=== PATIENT | female | born 1955 | race African-American/Black ===

== ENCOUNTER 2018-11-21 05:21 | Inpatient (IN) ==
[2018-11-21] MEDS ORDERED: DIAZEPAM 5 MG TABLET PO ONE (06:00)
[2018-11-21] MEDS ORDERED: FAMOTIDINE 20 MG TABLET PO ONE (06:00)
[2018-11-21] MEDS ORDERED: GABAPENTIN 400 MG CAPSULE PO ONE (06:00)
[2018-11-21] MEDS ORDERED: ACETAMINOPHEN 500 MG TABLET PO ONE (06:00)
[2018-11-21] MEDS ORDERED: ceFAZolin 2,000 MG in PREMIX 1 EACH IV ONE (06:30)
[2018-11-21] MEDS ORDERED: VANCOMYCIN INJ 1,000 MG in SODIUM CHLORIDE 0.9% 250 ML IV ONE (06:30)
[2018-11-21] MEDS ORDERED: VANCOMYCIN 1,000 MG VIAL ONE (06:54)
[2018-11-21] MEDS ORDERED: ACETAMINOPHEN 500 MG TABLET ONE (06:55)
[2018-11-21] MEDS ORDERED: DIAZEPAM 5 MG TABLET ONE (06:55)
[2018-11-21] MEDS ORDERED: GABAPENTIN 400 MG CAPSULE ONE (06:55)
[2018-11-21] MEDS ORDERED: FAMOTIDINE 20 MG TABLET ONE (06:55)
[2018-11-21] MEDS ORDERED: DEXAMETHASONE 4 MG/1 ML VIAL ONE (06:58)
[2018-11-21] MEDS ORDERED: EPINEPHrine 1 MG/ML VIAL ONE (06:58)
[2018-11-21] MEDS ORDERED: BUPIVACAINE SPINAL 0.75% 2 ML AMP SPINAL ONE (06:58)
[2018-11-21] MEDS ORDERED: ROPIVACAINE 0.5% 30 ML VIAL ONE (06:58)
[2018-11-21] MEDS ORDERED: TRANEXAMIC ACID 1,000 MG/10 ML VIAL ONE (06:58)
[2018-11-21] MEDS ORDERED: PROPOFOL 0 MG/0 ML BOTTLE IV ONE (07:00)
[2018-11-21] MEDS ORDERED: LACTATED RINGERS 1,000 ML IV SCH (07:30)
[2018-11-21] MEDS ORDERED: ceFAZolin 1,000 MG VIAL ONE (08:40)
[2018-11-21] MEDS ORDERED: ONDANSETRON 4 MG/2 ML VIAL IV PRN (09:52)
[2018-11-21] MEDS ORDERED: oxyCODONE IR 5 MG TABLET PO PRN ×2 (09:52)
[2018-11-21] MEDS ORDERED: MAGNESIUM HYDROXIDE SUSP 30 ML UDCUP PO PRN (09:52)
[2018-11-21] MEDS ORDERED: diphenhydrAMINE CAP 25 MG CAPSULE PO PRN (09:52)
[2018-11-21] MEDS ORDERED: MORPHINE 4 MG/1 ML VIAL IV PRN ×2 (09:52)
[2018-11-21] MEDS ORDERED: MIDAZOLAM 2 MG/2 ML VIAL ONE ×2 (10:01)
[2018-11-21] MEDS ORDERED: fentaNYL 100 MCG/2 ML VIAL ONE (10:02)
[2018-11-21] MEDS ORDERED: LIDOCAINE 100 MG/5 ML SYRINGE ONE (10:02)
[2018-11-21] MEDS ORDERED: PROPOFOL 200 MG/20 ML VIAL IV ONE (10:02)
[2018-11-21] MEDS ORDERED: SODIUM CHLORIDE 0.9% 100 ML IV ONE (10:03)
[2018-11-21] MEDS ORDERED: SODIUM CHLORIDE 0.9% 250 ML IV ONE (10:03)
[2018-11-21] MEDS ORDERED: ePHEDrine 50 MG/ML AMP ONE (10:03)
[2018-11-21] MEDS ORDERED: SODIUM CHLORIDE 0.9% 1,000 ML IV ONE (10:03)
[2018-11-21 12:55] LABS: Basophils % 0.2 % (0.0-0.8); Eosinophils % 0.4 % (0.00-10.9); Hematocrit 38.4 VOL% (35.7-47.0); Hemoglobin 11.8 GM/DL (12.0-16.0); Immature Granulocytes % 1.4 %; Immature Granulocytes Absolute 0.11 #; Lymphocytes # 1.2 10*3/uL (1.4-4.0); Lymphocytes % 15.1 % (21.3-54.2); Mean Corpuscular HGB Conc 30.7 GM/DL (32-36); Mean Corpuscular Volume 83.5 FL (87-102); Mean Platelet Volume 10.9 FL (9.6-12.0); Monocytes % 4.1 % (1.7-12.7); Neutrophils % 78.8 % (38.7-73.9); Platelet Count 250 T/CUMM (130-400); Red Cell Distribution Width 15.4 % (9.3-17.3); White Blood Count 8.1 T/CUMM (4-12)
[2018-11-21 13:03] LABS: Calcium 8.6 MG/DL (8.5-10.1); Osmolality,Calculated 281.3 MOS/KG (273-304)
[2018-11-21] MEDS: KETOROLAC 30 MG/1 ML VIAL IV SCH ×3 (16:11→21:35)
[2018-11-21] MEDS: ceFAZolin 2,000 MG in PREMIX 1 EACH IV SCH (16:40)
[2018-11-21] MEDS: LACTATED RINGERS 1,000 ML IV SCH ×2 (16:46→19:19)
[2018-11-21] MEDS ORDERED: SIMVASTATIN 20 MG TABLET PO SCH (21:00)
[2018-11-21] MEDS: DOCUSATE SODIUM 100 MG CAPSULE PO SCH (21:35)
[2018-11-22] MEDS: ceFAZolin 2,000 MG in PREMIX 1 EACH IV SCH (00:54)
[2018-11-22] MEDS: KETOROLAC 30 MG/1 ML VIAL IV SCH (04:38)
[2018-11-22] MEDS: LACTATED RINGERS 1,000 ML IV SCH (04:38)
[2018-11-22] MEDS ORDERED: FONDAPARINUX 2.5 MG/0.5 ML SYRINGE SUBCUT SCH (06:00)
[2018-11-22 06:32] LABS: Basophils % 0.2 % (0.0-0.8); Calcium 8.1 MG/DL (8.5-10.1); Eosinophils % 0.1 % (0.00-10.9); Hematocrit 32.3 VOL% (35.7-47.0); Hemoglobin 9.9 GM/DL (12.0-16.0); Immature Granulocytes % 0.4 %; Immature Granulocytes Absolute 0.04 #; Lymphocytes # 1.4 10*3/uL (1.4-4.0); Lymphocytes % 13.8 % (21.3-54.2); Mean Corpuscular HGB Conc 30.7 GM/DL (32-36); Mean Corpuscular Volume 82.2 FL (87-102); Mean Platelet Volume 11.4 FL (9.6-12.0); Monocytes % 7.2 % (1.7-12.7); Neutrophils % 78.3 % (38.7-73.9); Osmolality,Calculated 282.3 MOS/KG (273-304); Platelet Count 226 T/CUMM (130-400); Red Blood Count 3.93 MC/CUMM (3.8-5.5); Red Cell Distribution Width 15.1 % (9.3-17.3); White Blood Count 10.1 T/CUMM (4-12)
[2018-11-22] MEDS: DOCUSATE SODIUM 100 MG CAPSULE PO SCH (08:32)
[2018-11-22] MEDS ORDERED: POTASSIUM CHLORIDE 10 MEQ TABLET PO SCH (09:00)
[2018-11-22] MEDS ORDERED: hydroCHLOROthiazide 12.5 MG CAPSULE PO SCH (09:00)
[2018-11-22] MEDS ORDERED: LEVOTHYROXINE 75 MCG TABLET PO SCH (09:00)
[2018-11-22] MEDS ORDERED: LOSARTAN 50 MG TABLET PO SCH (09:00)
[2018-11-22 12:26] VITALS: BP 144/68
[2018-11-22] MEDS ORDERED: CELECOXIB 200 MG CAPSULE PO SCH (15:53)
== END 2018-11-22 13:00 | disposition home health service (06) | DRG 470 ==
LOC: N.PREADM 05:21 → N.SDSINP 05:22 → N.3E 11:12
PROVIDERS: ADMIT Orthopaedic Surgery; ATTEND Orthopaedic Surgery

== ENCOUNTER 2021-07-29 11:21 | Inpatient (IN) ==
[2021-07-29] MEDS ORDERED: ACETAMINOPHEN 325 MG TABLET PO PRN (14:11)
[2021-07-29] MEDS ORDERED: ONDANSETRON 4 MG/2 ML VIAL IV PRN (14:11)
[2021-07-29 17:58] LABS: Basophils % 0.2 % (0.0-0.8); Eosinophils % 0.1 % (0.00-10.9); Hematocrit 45.4 VOL% (35.7-47.0); Hemoglobin 13.8 GM/DL (12.0-16.0); Immature Granulocytes % 1.3 %; Lymphocytes % 6.7 % (21.3-54.2); Mean Corpuscular HGB Conc 30.4 GM/DL (32-36); Mean Corpuscular Volume 83.9 FL (87-102); Mean Platelet Volume 11.3 FL (9.6-12.0); Monocytes % 6.4 % (1.7-12.7); NRBC # 0.03 10*3/uL; Neutrophils % 85.3 % (38.7-73.9); Platelet Count 211 T/CUMM (130-400); Red Blood Count 5.41 MC/CUMM (3.8-5.5); Red Cell Distribution Width 21.2 % (9.3-17.3); White Blood Count 15.1 T/CUMM (4-12)
[2021-07-29] MEDS: methylPREDNISolone SOD SUC 125 MG/2 ML VIAL IV SCH ×2 (18:02→23:45)
[2021-07-29] MEDS: SODIUM CHLORIDE 0.9% 1,000 ML IV SCH (18:03)
[2021-07-29] MEDS ORDERED: ZALEPLON 5 MG CAPSULE PO PRN (18:05)
[2021-07-29 18:17] LABS: Alanine Aminotransferase 43 U/L (13-56); Albumin 3.6 G/DL (3.4-5.0); Alkaline Phosphatase 72 U/L (45-117); Aspartate Amino Transferase 12 U/L (0-37); Bilirubin,Total < 0.39 MG/DL (0.20-1.00); Blood Urea Nitrogen 88 MG/DL (7-18); Calcium 8.8 MG/DL (8.5-10.1); Carbon Dioxide 11 MMOL/L (21-32); Chloride 125 MMOL/L (98-107); Glucose 85 MG/DL (74-106); Osmolality,Calculated 315.6 MOS/KG (273-304); Potassium 5.1 MMOL/L (3.5-5.1); Sodium 146 MMOL/L (136-145); Total Protein 7.9 G/DL (6.4-8.2)
[2021-07-29 18:18] LABS: Burr Cells Slight; Hypochromia Slight; Ovalocytes Few
[2021-07-29 18:19] LABS: Polychromasia Slight
[2021-07-29 18:20] LABS: Platelet Estimate Normal
[2021-07-29] MEDS: ENOXAPARIN 30 MG/0.3 ML SYRINGE SUBCUT SCH (20:43)
[2021-07-29] MEDS: DOCUSATE SODIUM 100 MG CAPSULE PO SCH (20:44)
[2021-07-30] MEDS: SODIUM CHLORIDE 0.9% 1,000 ML IV SCH ×3 (00:48→19:57)
[2021-07-30 04:38] LABS: Basophils % 0.1 % (0.0-0.8); Hematocrit 40.7 VOL% (35.7-47.0); Hemoglobin 12.7 GM/DL (12.0-16.0); Immature Granulocytes % 0.6 %; Immature Granulocytes Absolute 0.08 #; Lymphocytes # 0.6 10*3/uL (1.4-4.0); Lymphocytes % 4.8 % (21.3-54.2); Mean Corpuscular HGB Conc 31.2 GM/DL (32-36); Mean Corpuscular Volume 82.6 FL (87-102); Mean Platelet Volume 10.9 FL (9.6-12.0); Monocytes # 0.1 10*3/uL (0.11-0.8); Monocytes % 0.8 % (1.7-12.7); NRBC # 0.02 10*3/uL; Neutrophils % 93.7 % (38.7-73.9); Platelet Count 191 T/CUMM (130-400); Red Blood Count 4.93 MC/CUMM (3.8-5.5); Red Cell Distribution Width 20.3 % (9.3-17.3); White Blood Count 12.6 T/CUMM (4-12)
[2021-07-30 05:02] LABS: Acanthocytes Few; Lymphocytes 1 % (20-55); Microcytosis 1+; Ovalocytes Few; Total Cells Counted 100
[2021-07-30 05:03] LABS: Platelet Estimate Normal
[2021-07-30 05:06] LABS: Albumin 3.2 G/DL (3.4-5.0); Bilirubin,Total 0.4 MG/DL (0.20-1.00); Calcium 8.5 MG/DL (8.5-10.1); Osmolality,Calculated 315.4 MOS/KG (273-304); Potassium 4.7 MMOL/L (3.5-5.1); Total Protein 7.1 G/DL (6.4-8.2)
[2021-07-30] MEDS: methylPREDNISolone SOD SUC 125 MG/2 ML VIAL IV SCH ×4 (05:57→23:06)
[2021-07-30] MEDS: LEVOTHYROXINE 112 MCG TABLET PO SCH (05:57)
[2021-07-30] MEDS: DOCUSATE SODIUM 100 MG CAPSULE PO SCH ×2 (08:36→20:53)
[2021-07-30] MEDS: PANTOPRAZOLE 40 MG TABLET PO SCH (08:36)
[2021-07-30] MEDS: SODIUM BICARB INJ 50 MEQ in DEXTROSE 5% NACL 0.45% 1,000 ML IV SCH (19:57)
[2021-07-30] MEDS: ENOXAPARIN 30 MG/0.3 ML SYRINGE SUBCUT SCH (20:53)
[2021-07-30] MEDS: cloNIDine 0.1 MG TABLET PO SCH (20:53)
[2021-07-31 04:13] LABS: Basophils % 0.1 % (0.0-0.8); Hematocrit 35.5 VOL% (35.7-47.0); Hemoglobin 11.3 GM/DL (12.0-16.0); Immature Granulocytes % 1.2 %; Immature Granulocytes Absolute 0.16 #; Lymphocytes # 0.3 10*3/uL (1.4-4.0); Lymphocytes % 2.4 % (21.3-54.2); Mean Corpuscular HGB Conc 31.8 GM/DL (32-36); Mean Corpuscular Volume 81.6 FL (87-102); Mean Platelet Volume 11.3 FL (9.6-12.0); Monocytes # 0.4 10*3/uL (0.11-0.8); Monocytes % 3.2 % (1.7-12.7); NRBC # 0.05 10*3/uL; Neutrophils % 93.1 % (38.7-73.9); Platelet Count 155 T/CUMM (130-400); Red Blood Count 4.35 MC/CUMM (3.8-5.5); Red Cell Distribution Width 19.5 % (9.3-17.3); White Blood Count 13.3 T/CUMM (4-12)
[2021-07-31] MEDS: SODIUM BICARB INJ 50 MEQ in DEXTROSE 5% NACL 0.45% 1,000 ML IV SCH ×4 (04:34→22:40)
[2021-07-31 04:35] LABS: Lymphocytes 1 % (20-55); Total Cells Counted 100
[2021-07-31 04:36] LABS: Acanthocytes Few; Platelet Estimate Adequate; Poikilocytosis Slight
[2021-07-31 04:45] LABS: Albumin 2.7 G/DL (3.4-5.0); Bilirubin,Total 0.5 MG/DL (0.20-1.00); Osmolality,Calculated 312.4 MOS/KG (273-304); Potassium 4.6 MMOL/L (3.5-5.1); Total Protein 6.1 G/DL (6.4-8.2)
[2021-07-31] MEDS: methylPREDNISolone SOD SUC 125 MG/2 ML VIAL IV SCH ×4 (04:57→22:40)
[2021-07-31] MEDS: LEVOTHYROXINE 112 MCG TABLET PO SCH (05:57)
[2021-07-31] MEDS: DOCUSATE SODIUM 100 MG CAPSULE PO SCH ×2 (08:52→20:45)
[2021-07-31] MEDS: cloNIDine 0.1 MG TABLET PO SCH ×3 (08:52→20:44)
[2021-07-31] MEDS: PANTOPRAZOLE 40 MG TABLET PO SCH ×2 (08:52→13:18)
[2021-07-31] MEDS: ENOXAPARIN 30 MG/0.3 ML SYRINGE SUBCUT SCH (20:44)
[2021-08-01] MEDS: methylPREDNISolone SOD SUC 125 MG/2 ML VIAL IV SCH ×4 (05:02→23:45)
[2021-08-01] MEDS: SODIUM BICARB INJ 50 MEQ in DEXTROSE 5% NACL 0.45% 1,000 ML IV SCH (05:04)
[2021-08-01 05:52] LABS: Basophils % 0.1 % (0.0-0.8); Hematocrit 31.5 VOL% (35.7-47.0); Hemoglobin 10.2 GM/DL (12.0-16.0); Immature Granulocytes % 1.5 %; Immature Granulocytes Absolute 0.18 #; Lymphocytes # 0.3 10*3/uL (1.4-4.0); Lymphocytes % 2.6 % (21.3-54.2); Mean Corpuscular HGB Conc 32.4 GM/DL (32-36); Mean Corpuscular Volume 80.2 FL (87-102); Mean Platelet Volume 11.7 FL (9.6-12.0); Monocytes # 0.4 10*3/uL (0.11-0.8); Monocytes % 3.2 % (1.7-12.7); NRBC # 0.03 10*3/uL; Neutrophils % 92.6 % (38.7-73.9); Platelet Count 132 T/CUMM (130-400); Red Blood Count 3.93 MC/CUMM (3.8-5.5)
[2021-08-01 06:02] LABS: Albumin 2.4 G/DL (3.4-5.0); Bilirubin,Total 0.6 MG/DL (0.20-1.00); Calcium 8.1 MG/DL (8.5-10.1); Osmolality,Calculated 303.6 MOS/KG (273-304); Potassium 3.7 MMOL/L (3.5-5.1); Total Protein 5.4 G/DL (6.4-8.2)
[2021-08-01] MEDS: LEVOTHYROXINE 112 MCG TABLET PO SCH (06:14)
[2021-08-01 06:31] LABS: Lymphocytes 2 % (20-55); Total Cells Counted 100
[2021-08-01 06:33] LABS: Anisocytosis 1+; Hypochromia Slight; Microcytosis 1+
[2021-08-01 06:34] LABS: Acanthocytes Few; Ovalocytes Few; Platelet Estimate Adequate
[2021-08-01] MEDS: DOCUSATE SODIUM 100 MG CAPSULE PO SCH ×2 (09:36→20:46)
[2021-08-01] MEDS: PANTOPRAZOLE 40 MG TABLET PO SCH (09:37)
[2021-08-01] MEDS: cloNIDine 0.1 MG TABLET PO SCH ×2 (09:48→20:47)
[2021-08-01] MEDS: LACTATED RINGERS 1,000 ML IV SCH ×2 (11:24→18:56)
[2021-08-02] MEDS: LACTATED RINGERS 1,000 ML IV SCH ×5 (02:17→21:24)
[2021-08-02 05:21] LABS: Basophils % 0.1 % (0.0-0.8); Hematocrit 32.7 VOL% (35.7-47.0); Hemoglobin 10.4 GM/DL (12.0-16.0); Immature Granulocytes % 1.6 %; Immature Granulocytes Absolute 0.21 #; Lymphocytes # 0.4 10*3/uL (1.4-4.0); Lymphocytes % 2.8 % (21.3-54.2); Mean Corpuscular HGB Conc 31.8 GM/DL (32-36); Mean Platelet Volume 11.6 FL (9.6-12.0); Monocytes # 0.3 10*3/uL (0.11-0.8); Monocytes % 2.6 % (1.7-12.7); NRBC # 0.02 10*3/uL; Neutrophils % 92.9 % (38.7-73.9); Platelet Count 119 T/CUMM (130-400); Red Blood Count 4.09 MC/CUMM (3.8-5.5); Red Cell Distribution Width 18.5 % (9.3-17.3); White Blood Count 12.8 T/CUMM (4-12)
[2021-08-02 05:46] LABS: Hypochromia Slight; Lymphocytes 2 % (20-55); Microcytosis Slight; Total Cells Counted 100
[2021-08-02 06:02] LABS: Albumin 2.6 G/DL (3.4-5.0); Bilirubin,Total 0.6 MG/DL (0.20-1.00); Osmolality,Calculated 295.8 MOS/KG (273-304); Potassium 3.7 MMOL/L (3.5-5.1); Total Protein 5.3 G/DL (6.4-8.2)
[2021-08-02] MEDS: methylPREDNISolone SOD SUC 125 MG/2 ML VIAL IV SCH ×4 (06:11→23:20)
[2021-08-02] MEDS: LEVOTHYROXINE 112 MCG TABLET PO SCH (06:12)
[2021-08-02] MEDS: DOCUSATE SODIUM 100 MG CAPSULE PO SCH ×2 (10:00→21:27)
[2021-08-02] MEDS: PANTOPRAZOLE 40 MG TABLET PO SCH (10:00)
[2021-08-02] MEDS: cloNIDine 0.1 MG TABLET PO SCH ×2 (10:00→21:27)
[2021-08-02] MEDS: DEXTROSE 5% LACTATED RINGERS 1,000 ML IV SCH (12:00)
[2021-08-02] MEDS ORDERED: LORazepam 2 MG/1 ML VIAL IV PRN (23:47)
[2021-08-03] MEDS: DEXTROSE 5% LACTATED RINGERS 1,000 ML IV SCH (03:58)
[2021-08-03] MEDS: LACTATED RINGERS 1,000 ML IV SCH ×3 (04:43→17:34)
[2021-08-03 05:26] LABS: Basophils % 0.1 % (0.0-0.8); Hematocrit 32.6 VOL% (35.7-47.0); Hemoglobin 10.6 GM/DL (12.0-16.0); Immature Granulocytes Absolute 0.27 #; Lymphocytes # 0.3 10*3/uL (1.4-4.0); Lymphocytes % 2.1 % (21.3-54.2); Mean Corpuscular HGB Conc 32.5 GM/DL (32-36); Mean Corpuscular Volume 80.1 FL (87-102); Mean Platelet Volume 12.1 FL (9.6-12.0); Monocytes # 0.4 10*3/uL (0.11-0.8); Monocytes % 2.6 % (1.7-12.7); NRBC # 0.02 10*3/uL; Neutrophils % 93.2 % (38.7-73.9); Platelet Count 117 T/CUMM (130-400); Red Blood Count 4.07 MC/CUMM (3.8-5.5); Red Cell Distribution Width 17.8 % (9.3-17.3); White Blood Count 13.5 T/CUMM (4-12)
[2021-08-03] MEDS: LEVOTHYROXINE 112 MCG TABLET PO SCH (05:34)
[2021-08-03] MEDS: methylPREDNISolone SOD SUC 125 MG/2 ML VIAL IV SCH ×4 (05:35→23:42)
[2021-08-03 05:55] LABS: Lymphocytes 2 % (20-55); Total Cells Counted 100
[2021-08-03 05:58] LABS: Microcytosis 1+; Platelet Estimate Decreased
[2021-08-03 06:01] LABS: Ovalocytes 1+; Schistocytes Few
[2021-08-03 06:03] LABS: Hypochromia 1+
[2021-08-03 06:12] LABS: Albumin 2.5 G/DL (3.4-5.0); Bilirubin,Total 0.5 MG/DL (0.20-1.00); Calcium 8.2 MG/DL (8.5-10.1); Osmolality,Calculated 293.1 MOS/KG (273-304); Potassium 3.5 MMOL/L (3.5-5.1); Total Protein 5.3 G/DL (6.4-8.2)
[2021-08-03] MEDS: DOCUSATE SODIUM 100 MG CAPSULE PO SCH ×2 (09:20→21:20)
[2021-08-03] MEDS: cloNIDine 0.1 MG TABLET PO SCH ×2 (09:20→21:20)
[2021-08-03] MEDS: levETIRAcetam 500 MG TABLET PO SCH ×2 (09:20→21:20)
[2021-08-03] MEDS: PANTOPRAZOLE 40 MG TABLET PO SCH (09:20)
[2021-08-04] MEDS: methylPREDNISolone SOD SUC 125 MG/2 ML VIAL IV SCH ×4 (05:55→23:14)
[2021-08-04] MEDS ORDERED: INDOCYANINE GREEN 25 MG VIAL IV ONE (06:00)
[2021-08-04 06:18] LABS: Basophils % 0.1 % (0.0-0.8); Hematocrit 36.7 VOL% (35.7-47.0); Hemoglobin 11.9 GM/DL (12.0-16.0); Immature Granulocytes % 1.7 %; Immature Granulocytes Absolute 0.29 #; Lymphocytes # 0.5 10*3/uL (1.4-4.0); Lymphocytes % 2.7 % (21.3-54.2); Mean Corpuscular HGB Conc 32.4 GM/DL (32-36); Monocytes # 0.3 10*3/uL (0.11-0.8); Neutrophils % 93.5 % (38.7-73.9); Platelet Count 138 T/CUMM (130-400); Red Blood Count 4.59 MC/CUMM (3.8-5.5); White Blood Count 17.3 T/CUMM (4-12)
[2021-08-04] MEDS: LEVOTHYROXINE 112 MCG TABLET PO SCH (06:18)
[2021-08-04 06:32] LABS: Albumin 2.8 G/DL (3.4-5.0); Bilirubin,Total 0.6 MG/DL (0.20-1.00); Calcium 8.2 MG/DL (8.5-10.1); Osmolality,Calculated 287.4 MOS/KG (273-304); Potassium 3.6 MMOL/L (3.5-5.1); Total Protein 5.9 G/DL (6.4-8.2)
[2021-08-04] MEDS: DEXTROSE 5% LACTATED RINGERS 1,000 ML IV SCH (06:37)
[2021-08-04 06:48] LABS: Lymphocytes 4 % (20-55); Platelet Estimate Normal; Total Cells Counted 100
[2021-08-04] MEDS: LACTATED RINGERS 1,000 ML IV SCH ×4 (07:41→17:45)
[2021-08-04] MEDS ORDERED: TISSUE ADHESIVE 1 EACH APPLICATOR TOP ONE (13:42)
[2021-08-04] MEDS ORDERED: LIDOCAINE 1%/EPI INJ 20 ML VIAL ONE (13:42)
[2021-08-04] MEDS ORDERED: BUPIVACAINE MPF 0.25% 10 ML VIAL ONE (13:42)
[2021-08-04] MEDS ORDERED: propofoL 200 MG/20 ML VIAL IV ONE ×2 (14:19→15:01)
[2021-08-04] MEDS ORDERED: LIDOCAINE 2% 5 ML VIAL ONE (14:19)
[2021-08-04] MEDS ORDERED: DESFLURANE 1 UNIT/15 MINUTE INH ONE ×2 (14:19→15:26)
[2021-08-04] MEDS ORDERED: ROCURONIUM 50 MG/5 ML VIAL IV ONE (14:19)
[2021-08-04] MEDS ORDERED: fentaNYL 100 MCG/2 ML VIAL ONE (14:19)
[2021-08-04] MEDS ORDERED: DEXAMETHASONE 4 MG/1 ML VIAL ONE (15:01)
[2021-08-04] MEDS ORDERED: NEOSTIGMINE 10 MG/10 ML VIAL ONE (15:01)
[2021-08-04] MEDS ORDERED: GLYCOPYRROLATE 0.4 MG/2 ML VIAL ONE (15:01)
[2021-08-04] MEDS ORDERED: ONDANSETRON 4 MG/2 ML VIAL ONE (15:01)
[2021-08-04] MEDS: PANTOPRAZOLE 40 MG TABLET PO SCH (16:32)
[2021-08-04] MEDS: cloNIDine 0.1 MG TABLET PO SCH ×2 (16:32→21:02)
[2021-08-04] MEDS: DOCUSATE SODIUM 100 MG CAPSULE PO SCH ×2 (16:32→21:02)
[2021-08-04] MEDS: levETIRAcetam 500 MG TABLET PO SCH ×2 (16:32→21:02)
[2021-08-05] MEDS: LACTATED RINGERS 1,000 ML IV SCH (00:35)
[2021-08-05] MEDS: DEXTROSE 5% LACTATED RINGERS 1,000 ML IV SCH (01:34)
[2021-08-05] MEDS: methylPREDNISolone SOD SUC 125 MG/2 ML VIAL IV SCH ×2 (04:38→10:10)
[2021-08-05] MEDS: LEVOTHYROXINE 112 MCG TABLET PO SCH (05:48)
[2021-08-05 05:53] LABS: Basophils % 0.1 % (0.0-0.8); Hematocrit 31.8 VOL% (35.7-47.0); Hemoglobin 10.2 GM/DL (12.0-16.0); Immature Granulocytes Absolute 0.17 #; Lymphocytes # 0.2 10*3/uL (1.4-4.0); Lymphocytes % 1.3 % (21.3-54.2); Mean Corpuscular HGB Conc 32.1 GM/DL (32-36); Mean Corpuscular Volume 80.9 FL (87-102); Monocytes # 0.5 10*3/uL (0.11-0.8); Monocytes % 2.6 % (1.7-12.7); Platelet Count 102 T/CUMM (130-400); Red Blood Count 3.93 MC/CUMM (3.8-5.5); Red Cell Distribution Width 17.7 % (9.3-17.3); White Blood Count 17.2 T/CUMM (4-12)
[2021-08-05 06:12] LABS: Albumin 2.3 G/DL (3.4-5.0); Bilirubin,Total 0.6 MG/DL (0.20-1.00); Calcium 7.9 MG/DL (8.5-10.1); Osmolality,Calculated 286.4 MOS/KG (273-304); Potassium 3.9 MMOL/L (3.5-5.1); Total Protein 4.8 G/DL (6.4-8.2)
[2021-08-05 06:21] LABS: Lymphocytes 2 % (20-55); Total Cells Counted 100
[2021-08-05 06:22] LABS: Hypochromia 1+; Microcytosis 1+
[2021-08-05 06:24] LABS: Ovalocytes Slight; Target Cells Slight
[2021-08-05 06:25] LABS: Platelet Estimate Decreased
[2021-08-05] MEDS: DOCUSATE SODIUM 100 MG CAPSULE PO SCH (10:10)
[2021-08-05] MEDS: PANTOPRAZOLE 40 MG TABLET PO SCH (10:10)
[2021-08-05] MEDS: levETIRAcetam 500 MG TABLET PO SCH (10:10)
[2021-08-05] MEDS: cloNIDine 0.1 MG TABLET PO SCH (10:10)
[2021-08-05 16:17] VITALS: BP 124/62
== END 2021-08-05 18:27 | disposition home or self-care (01) | DRG 418 ==
LOC: N.TELEN 15:32
PROVIDERS: ADMIT Family Medicine; ATTEND Family Medicine